=== PATIENT | female | born 1955 | race Caucasian/White ===

== ENCOUNTER 2022-03-26 09:24 | Outpatient (CLI) | payer MEDICARE, SELFPAY ==
--- NOTE | ~2022-03-26 | XR_ITS ---
EXAMINATION: XR lumbar spine 2-3V DATE: 03/26/2022 10:05 INDICATION: Low back pain. TECHNIQUE: 3 views of lumbar spine were obtained. COMPARISON: None. FINDINGS: There is 21 degrees levoscoliosis of lumbar spine. There is 3 mm retrolisthesis of L2 on L3 and L3 on L4. Vertebral body heights are normal. There is severely decreased disc height from L2-L3 through L4-L5 with endplate remodeling. There is multilevel severe facet joint osteoarthritis. Surgic al clips in the right upper quadrant are likely from cholecystectomy. IMPRESSION: 1. Severe lumbar spondylosis. 2. Lumbar levoscoliosis. Reviewed, dictated and finalized at location A.
[2022-03-26 10:10] LABS: Basophils Percent Auto 0.5 % (0.2-1.2); Eosinophils Absolute Auto 0.3 K/mm3 (0-0.3); Eosinophils Percent Auto 3.3 % (0-4.4); Hematocrit 42.6 % (37.0-47.0); Hemoglobin 13.9 g/dL (12.0-15.0); Immature Granulocyte Absolute 0.03 K/mm3 (0.00-0.031); Immature Granulocyte Percent A 0.4 % (0-0.5); Mean Corpuscular HGB Conc 32.6 g/dl (32-36); Mean Corpuscular Hemoglobin 28.4 pg (26-34); Mean Corpuscular Volume 86.9 fl (80-100); Mean Platelet Volume 9.4 fl (7.4-10.4); Monocytes Absolute Auto 0.9 K/mm3 (0.1-0.6); Monocytes Percent Auto 11.6 % (2.6-8.5); Neutrophils Absolute Auto 4.8 K/mm3 (1.3-6.7); Neutrophils Percent Auto 60.2 % (45.5-73.1); Platelet Count Result 323 k/mm3 (150-375); Red Cell Distribution Width 13.2 % (11.5-14.5); White Blood Count 7.9 K/mm3 (4.5-10.0)
[2022-03-26 10:11] LABS: Appearance Urine Clear (Clear); Bilirubin Urine Negative (Negative); Blood Urine Negative (Negative); Color Urine Yellow (Yellow); Glucose Urine UA Negative (Negative); Ketones Urine Negative (Negative); Leukocyte Esterase Ur Negative LEU/UL (Negative); Nitrate Urine Negative (Negative); Protein Urine Negative (Negative); Urobilinogen Urine 0.2 mg/dL (<2.0)
[2022-03-26 10:19] LABS: Add Urine Microscopic? NO
[2022-03-26 10:21] LABS: Alanine Aminotransferase 22 U/L (6-35); Albumin Level 4.8 g/dL (3.5-5.1); Alkaline Phosphatase 93 U/L (38-126); Anion Gap 15 mmol/L (8-16); Aspartate Amino Transferase 28 U/L (14-36); Bilirubin,Total 0.2 mg/dL (0.2-1.3); Blood Urea Nitrogen 15 mg/dL (7-17); Calcium 9.4 mg/dL (8.4-10.2); Carbon Dioxide 31 mmol/L (22-30); Chloride 99 mmol/L (98-107); Estimated Glomerular Filt Rate > 60; Glucose 79 mg/dL (65-110); INR 0.9; Potassium 4.1 mmol/L (3.4-5.0); Prothrombin Time 12.1 Seconds (11.1-14.7); Sodium 145 mmol/L (137-145)
== END 2022-03-26 09:25 | disposition home or self-care (01) ==
LOC: ANHSURGERY 09:30
PROVIDERS: Visit Provider Neurological Surgery
DX: M54.50 Low back pain, unspecified (principal); M47.816 Spondylosis without myelopathy or radiculopathy, lumbar region; Z01.818 Encounter for other preprocedural examination
CPT/HCPCS: 36415; 72100; 80053; 81003; 85025; 85610; 85730; 86850; 86900; 86901

== ENCOUNTER 2022-03-31 14:17 | Inpatient (IN) | payer MEDICARE, SELFPAY ==
[2022-03-23 10:25] VITALS: BMI 29.3
--- NOTE | 2022-03-23 11:06 | PC.NURSE ---
PRE-OP INSTRUCTIONS, PLEASE READ CAREFULLY Report to the Outpatient Waiting Room, entrance under the green pavilion located off [facility], at time _0600_ on date _03/30/22_. OR Time: _0730_. PACK A SMALL OVERNIGHT BAG AND LEAVE IN THE CAR - A mask is required within the hospital. - You and your visitor will be asked to self-screen and do not enter if you have any COVID symptoms. - Only one visitor and NO children visitors are allowed at this time. - The patient visitor is requested to leave or wait in car when not with patient due to restrictions. - VISITING HOURS 10AM-8PM, PARK IN FRONT PARKING LOT AND USE MAIN HOSPITAL ENTRANCE Patients may have clear liquids (water, carbonated beverages, clear teas, apple juice) until 3 hours prior to surgery (0430 AM) with a maximum of 20 ounces. - No food from midnight until time of surgery Take the following medications with a SIP of water the morning of surgery: _TYLENOL IF NEEDED_ Medications to discontinue per DR. WALDEN - _PT STATES STOPPING CELECOXIB 03/19/22 Medications to discontinue per ANESTHESIA - _VITAMINS/SUPPLEMENTS 3 DAYS PRIOR TO SURGERY, Date to take last dose 03/26/22_ Please no make-up, nail gabonese, hairspray, perfume, deodorant, or body powder the day of surgery. No jewelry (including any body piercings) or valuables the day of surgery, leave them at home. Please take a shower or bath the night before, or the morning of, surgery with an antibacterial soap. Wear comfortable, loose fitting clothing. - Jewelry must be removed prior to entering the operating room. Rings and piercings that are not removed may be cut off. - The hospital will not accept responsibility for valuables. - Please leave all valuables, including medications, at home the day of surgery. If you are going home after surgery, a licensed caterpillar driver must drive you home. - NO public transportation without another adult. - We recommend that an adult stay with you for 24 hours following discharge. - We also recommend that you do not drive, make important decision, drink alcoholic beverages, or take any drugs that were not prescribed by your health care provider for at least 24 hours after your discharge time. Follow any additional instructions given to you from your surgeon. If you or anyone in your household have experienced Covid symptoms in the past week, please notify your surgeon or the nurse liaison at the phone number below for possible testing. Telephone instructions given to ____PT and asked if any additional questions and then verbalized understanding. Patient advised to call surgeon office or pre surgery nurse liaison [phone] if any additional questions.
[2022-03-30] VITALS (21 sets, daily range): BP systolic 91–186; BP diastolic 52–84; PULSE 75–105; RESP 12–24; TEMP 36.1–36.6; O2SAT 94–100
[2022-03-30] MEDS: LACTATED RINGERS 1,000 ML 125 ML IV CONT (07:00)
--- NOTE | 2022-03-30 07:14 | WPDANESEPPF ---
Anes - Initial Pre Proc Eval Procedure: Operation Date: 03/30/22 07:30 Proposed Procedures p L2-5 Posterior Lumbar Interbody Fusion with Osteotomies - Burke Rivas MD Date/Time: 03/30/22 07:14 Surgeon: Burke Rivas MD Pre Op Diagnosis: lumbar spondylosis,lumbar scoliosis, Patient Data Age: 66 Gender: F Height: 1.52 m Weight: 68.18 kg Allergies Allergy/AdvReac Type Severity Reaction Status Date / Time No Known Allergies Allergy Unverified 03/23/22 10:16 Home Medications Medication Instructions Recorded Confirmed Type Congaplex 1 tab-cap BID 03/23/22 03/23/22 History [place] Tears 1 drp QID 03/23/22 03/23/22 History Prevagen 1 tab-cap QAM 03/23/22 03/23/22 History acetaminophen 500 mg tablet 1,000 mg PO Q6H PRN Pain 03/23/22 03/23/22 History celecoxib 200 mg capsule 200 mg QAM 03/23/22 03/23/22 History cholecalciferol (vitamin D3) 25 25 mcg PO HS 03/23/22 03/23/22 History mcg (1,000 unit) tablet ferrous sulfate 325 mg (65 mg 325 mg EVERY OTHER DAY 03/23/22 03/23/22 History iron) tablet (FeroSul) gabapentin 300 mg capsule 300 mg PO HS 03/23/22 03/23/22 History melatonin 10 mg tablet 10 mg PO HS 03/23/22 03/23/22 History nortriptyline 10 mg capsule 10 mg HS 03/23/22 03/23/22 History omeprazole 20 mg capsule,delayed 20 mg QAM 03/23/22 03/23/22 History release psyllium husk 0.52 gram capsule 0.52 g PO HS 03/23/22 03/23/22 History tizanidine 4 mg tablet 4 mg HS 03/23/22 03/23/22 History vit C 250 mg-vit E 90 mg-zinc 40 1 tablet PO BID 03/23/22 03/23/22 History mg-copper 1 [id number] capsule (PreserVision AREDS-2) Patient hx anesthesia problems: none Family hx anesthesia problems: none Results Review: All pre-operative results and documents have been reviewed as part of the pre-operative evaluation. [facility] Past Medical History Medical History Chronic pain syndrome Foraminal stenosis of lumbar region GERD (gastroesophageal reflux disease) Lumbar spondylosis Scoliosis of lumbar spine Surgical History Surgical History Hx of cholecystectomy Hx of tonsillectomy Family History Family History Other Dementia Social History Social History Smoking status: Never smoker Second hand tobacco smoke exposure: No Alcohol intake: current Alcohol use details: STATES VERY VERY RARELY Substance use: never Substance use type: does not use Living arrangements: with family Spiritual care concerns: No Anes - Eval Final PreProcedure Day of Procedure 03/30/22 07:14 Patient weight: overweight Heart: regular rate and rhythm Lungs: clear to auscultation Airway: Mallampati scale class III Neurological: alert and oriented Last oral intake: >/= 8 hours ASA classification: III Emergent: no Anesthetic plan: proceed Anesthesia type and monitoring: general ETT and standard monitoring Results Review: All pre-operative results and documents have been reviewed as part of the pre-operative evaluation. Informed Consent: The patient's anesthetic plan and its attendant risks and benefits were discussed with the patient/family/POA. Questions were solicited and answers provided to the satisfaction of the patient/family/POA.
--- NOTE | 2022-03-30 07:50 | PM.IMHP ---
H&P: HPI History of Present Illness Date/Time: 03/30/22 07:50 Chief Complaint: Back and leg pain Narrative: Silvia is a 66-year-old female with back and leg pain related to spondylosis, scoliosis and foraminal and central canal stenosis who presents for L2-5 posterior lumbar interbody fusion. She has not changed since we saw her last. She is not having any bowel or bladder difficulty. She does not have specific muscle group weakness. She has numbness in her right foot. Review of Systems Review of Systems: Patient denies shortness of breath, cough, fever, chills, nausea, vomiting, weight loss, weight gain, dysuria, chest pain. She has back and leg pain and numbness as described elsewhere. She is otherwise negative on 12 systems except as noted elsewhere. [facility] Past Medical History Medical History Chronic pain syndrome Foraminal stenosis of lumbar region GERD (gastroesophageal reflux disease) Lumbar spondylosis Scoliosis of lumbar spine Surgical History Surgical History Hx of cholecystectomy Hx of tonsillectomy Family History Family History Other Dementia Social History Social History Smoking status: Never smoker Second hand tobacco smoke exposure: No Alcohol intake: current Alcohol use details: STATES VERY VERY RARELY Substance use: never Substance use type: does not use Living arrangements: with family Spiritual care concerns: No Meds Home Medications and Allergies Home Medications Medication Instructions Recorded Confirmed Type Congaplex 1 tab-cap BID 03/23/22 03/23/22 History [employer] Tears 1 drp QID 03/23/22 03/23/22 History Prevagen 1 tab-cap QAM 03/23/22 03/23/22 History acetaminophen 500 mg tablet 1,000 mg PO Q6H PRN Pain 03/23/22 03/23/22 History celecoxib 200 mg capsule 200 mg QAM 03/23/22 03/23/22 History cholecalciferol (vitamin D3) 25 25 mcg PO HS 03/23/22 03/23/22 History mcg (1,000 unit) tablet ferrous sulfate 325 mg (65 mg 325 mg EVERY OTHER DAY 03/23/22 03/23/22 History iron) tablet (FeroSul) gabapentin 300 mg capsule 300 mg PO HS 03/23/22 03/23/22 History melatonin 10 mg tablet 10 mg PO HS 03/23/22 03/23/22 History nortriptyline 10 mg capsule 10 mg HS 03/23/22 03/23/22 History omeprazole 20 mg capsule,delayed 20 mg QAM 03/23/22 03/23/22 History release psyllium husk 0.52 gram capsule 0.52 g PO HS 03/23/22 03/23/22 History tizanidine 4 mg tablet 4 mg HS 03/23/22 03/23/22 History vit C 250 mg-vit E 90 mg-zinc 40 1 tablet PO BID 03/23/22 03/23/22 History mg-copper 1 [id number] capsule (PreserVision AREDS-2) Allergies Allergy/AdvReac Type Severity Reaction Status Date / Time No Known Allergies Allergy Unverified 03/23/22 10:16 Exam Neuro: Other: Patient is a normally developed, normal appearing female supine in hospital bed in no acute distress. She is awake, alert, oriented x3, with good fund of knowledge, recall of events and fluent speech. Her face is symmetrical, tongue is midline, her pupils are equal and reactive, her extraocular movements are intact. Strength is 5/5 in all muscle groups of the bilateral lower extremities. Sensation was intact to light touch throughout the lower extremities Assessment and Plan Assessment and plan (1) Lumbar spondylosis: Code(s): M47.816 - Spondylosis without myelopathy or radiculopathy, lumbar region Status: Acute (2) Lumbar stenosis with neurogenic claudication: Code(s): M48.062 - Spinal stenosis, lumbar region with neurogenic claudication Status: Acute (3) Foraminal stenosis of lumbar region: Code(s): M48.061 - Spinal stenosis, lumbar region without neurogenic claudication Status: Acute Plan Silvia is a 66-year-
--- NOTE | 2022-03-30 07:56 | WPDHPUPDATE1 ---
History and Physical Update Update Date/Time: 03/30/22 07:56 History and Physical has been reviewed, including an updated exam of the patient. There are NO changes in the patient's condition. Risks, benefits, and alternatives have been discussed and questions answered. Patient agrees to proceed with procedure.
[2022-03-30] MEDS: ceFAZolin 2 GM/D5W 50 ML 2 GM/50 ML BAG IVPB (08:00)
[2022-03-30] MEDS: LIDO 1%/EPINEPHRINE 1:100,000 50 ML VIAL INFILTRATE (08:47)
[2022-03-30] MEDS: ceFAZolin SODIUM 1 GM VIAL IV PUSH (11:55)
--- NOTE | 2022-03-30 12:40 | W.PM.PROC2 ---
Procedure Note - Detailed Date of Procedure 03/30/22 Pre-op Diagnosis lumbar spondylosis,lumbar scoliosis, Post-op Diagnosis Same Procedure Performed L2-3, L3-4 and L4-5 laminectomy and bilateral facetectomy, L2-3, L3-4 and L4-5 complete diskectomy and interbody arthrodesis utilizing titanium interbody device and local autograft, L2-3, L3-4 and L4-5 pedicle screw instrumentation Surgeon Burke Rivas MD [employer] Dr. Jane Romo Anesthesia General Indications Ms. Posadas is a 66-year-old female with back and leg pain related to scoliosis, foraminal stenosis and central canal stenosis who presents for posterior lumbar interbody fusion at L2-5. Findings Stenosis, spondylosis, foraminal stenosis Description of Procedure Ms. Posadas was brought to the operating room in the supine position, was sedated, intubated and placed under general anesthesia in routine fashion. She was then turned into the prone position on an open Julian table. Area of operation on her back was examined, marked for incision, prepped and draped in routine sterile fashion. Incision was marked over the L2-3 5 spinous processes in the midline. This area was injected with 0.5% lidocaine with [id number] epinephrine. Intravenous antibiotics given prior to incision. Incision was made with a 10 blade scalpel down to the lumbodorsal fascia. A subperiosteal dissection of the muscle and soft tissue away from the spinous process and lamina at L2-5 was performed with a subperiosteal elevator and Bovie cautery. Very frail x-rays obtained to verify the level of operation. The L2 through 5 spinous processes were removed with a Sindy rongeur. Kerrison punches, curved curette and Leksell rongeur were used to remove the lamina in the midline and to the soft contents of the canal were encountered. A Midas Car drill was used to resect the pars bilaterally at L2 through 4. The inferior articular process and facet of L2-3 for good then be removed bilaterally. These +spinous processes were stripped free of soft tissue and morselized for later use as interbody autograft. Kerrison punches and curved curettes were used to define a plane with dura and removed bone and ligament flush with the pedicle and through the foramina widely decompressing the exiting nerve roots. With the thecal sac retracted and protected the disc spaces and bilaterally at each level using an 11 blade scalpel. Scrapers was a very sizes, curettes appears configurations, a pituitary rongeur and a rasp were used to remove as much cartilaginous endplate disc material as possible down to bleeding cortical flat surfaces on the opposing bones. A durotomy occurred on the right at L2-3 during this dissection. It was therefore decided not to place an interbody device from that side as the dura was densely adherent to the annulus. 8 mm interbody devices were chosen for each level after sizing. This was a 26 mm device placed from the left at L2-3 and bilateral at each of the other levels. These were filled with local autograft bone. The disc space was likewise filled with local autograft bone medially and anteriorly. The interbody devices were then placed 2-3 mm countersink within the disc space bilaterally. Pedicle screw instrumentation was performed by observing and palpating the pedicle while a hole was made this particular process above the pedicle using a Midas Car drill. The pedicle was then cannulated with a pedicle probe, checked for continuity with the ball probe, tapped with a 5.5 mm tap and a 6.5 x 50 mm screw was placed into each pedicle on each side. Rods were placed into the screw heads on either side and secured in position using caps for that purpose. Number for x-rays obtained to verify good position of the instrumentation which was confirmed. The caps were then definitively tightened with the torque and anti torque device. Wound was copiously irrigated with bacitracin irrigation all bleeding stopped with bipol
[2022-03-30] MEDS: LACTATED RINGERS 1,000 ML 30 ML IV CONT ×2 (12:45→13:46)
[2022-03-30] MEDS: fentaNYL CITRATE INJ (*CRX) 100 MCG/2 ML VIAL 25 MCG IV PUSH ×6 (13:09→14:01)
[2022-03-30] MEDS: HYDROmorphone HCL INJ (*CRX) 1 MG/ML SYR IV PUSH (14:19)
--- NOTE | 2022-03-30 15:00 | ADMGEN ---
This patient, Silvia Posadas, was admitted to Medical Room 249-01. Patient/family oriented to hospital policies and general routines including ID bracelet, bed and alarms, visiting hours, pain management, procedures, bathroom and other care routines, personal items, smoking policy, room service/diet, and visiting hours. Information on how to activate the Rapid Response Team has been discussed. Patient/Family are encouraged to report perceived risks to care and to ask questions if they do not understand what they are told or what they should do.
[2022-03-30] MEDS: ACETAMINOPHEN 500 MG TABLET 1000 MG PO (15:35)
[2022-03-30] MEDS: OPTI-GEN TAB 1 TABLET PO (16:45)
[2022-03-30] MEDS: ARTIFICIAL TEARS OPHTH SOLN 15 ML BOTTLE 1 DROP EACH EYE (16:49)
--- NOTE | 2022-03-30 19:45 | PC.NURSE ---
Attempted to get pt up to chair at this time, pt became nauseous and near syncopal. BP taken at this time shows significant drop from resting. pt returned to bed.
[2022-03-30] MEDS: HYDROmorphone HCL INJ (*CRX) 1 MG/ML SYR 0.5 MG IV PUSH (19:58)
[2022-03-30] MEDS: CHOLECALCIFEROL 1,000 UNITS TABLET 1000 UNITS PO (21:20)
[2022-03-30] MEDS: MELATONIN 5 MG TABLET 10 MG PO (21:20)
[2022-03-30] MEDS: GABAPENTIN 300 MG CAPSULE PO (21:20)
[2022-03-30] MEDS: NORTRIPTYLINE HCL 10 MG CAPSULE PO (21:20)
[2022-03-30] MEDS: DOCUSATE SODIUM 100 MG CAPSULE PO (21:20)
--- NOTE | 2022-03-30 21:46 | PC.NURSE ---
Dr Rivas notified pt experienced orthostatic hypotension and left leg weakness when attempting to move from bed to chair. May continue to attempt ambulation as tolerated by patient, continue to monitor lower extremity neuro checks as ordered.
[2022-03-31] VITALS (10 sets, daily range): BP systolic 72–186; BP diastolic 38–74; PULSE 81–114; RESP 16–20; TEMP 35.6–37.2; O2SAT 95–100
--- NOTE | ~2022-03-31 | CT_ITS ---
EXAMINATION: CT brain wo con DATE: 03/31/2022 20:03 INDICATION: New confusion TECHNIQUE: Computed tomography (CT) of the head was performed without intravenous contrast. The mA wa s adjusted according to patient size. Iterative reconstruction technique was employed. Exam dose: 75 6.67 mGy-cm total exam DLP. COMPARISON: None FINDINGS: Examination is limited by patient motion. Prominent bilateral carotid siphon internal carotid artery calcifications. There is nonspecific dimin ished attenuation of the cerebral white matter, likely due to chronic small vessel ischemic changes. No intracranial mass lesion or hemorrhage, midline shift or mass effect. Ventricular size is normal. No subdural or epidural hematoma is detected. No fracture or bone destruction of the cranial vault. Mastoid air cells and included paranasal sinuse s appear normally developed and aerated IMPRESSION: Cerebral atherosclerosis and chronic small vessel ischemic changes of the cerebral white matter No acute intracranial finding Reviewed, dictated and finalized at Location A. Reviewed, dictated and finalized at location A.
--- NOTE | ~2022-03-31 | XR_ITS ---
EXAMINATION: XR fluoroscopy no charge DATE: 03/30/2022 12:00 INDICATION: Lumbar fusion with osteotomies TECHNIQUE: 6 fluoroscopic images of the lumbar spine were obtained in lateral projection during proce dure performed by Dr. Rivas. Radiologist was not present for the imaging or procedure. The amount of fluoroscopy time used during this procedure was 0.4 minutes. Total DAP was 0.282 mGym^2 COMPARISON: 03/26/2022 FINDINGS: Images demonstrate anterior and posterior spinal fusion from L2 through L5 with bilateral vertical ro d and pedicle screw fixation as well as interbody fusion device at each level. The sagittal alignment of the lumbar spine appears normal on the lateral projection. There appear to be associated L2-L5 la minectomies on the final images although assessment is limited by fluoroscopic technique and overpene tration of the soft more posterior tissues. A curvilinear wire-like density projects over the posteri or elements. Instantly noted cholecystectomy clips in the upper abdomen. IMPRESSION: 1. Fluoroscopy utilized during the midline instrumented L2-L5 anterior and posterior spinal fusion. S ee procedure note for further detail. Reviewed, dictated and finalized at location A. IMPRESSION: 1. Fluoroscopy utilized during the midline instrumented L2-L5 anterior and post erior spinal fusion. See procedure note for further detail.
[2022-03-31] MEDS: traMADol HCL (*CRX) 50 MG TABLET 100 MG PO ×2 (00:40→08:20)
[2022-03-31 05:12] LABS: Hematocrit 28.6 % (37.0-47.0); Hemoglobin 9.2 g/dL (12.0-15.0); Mean Corpuscular HGB Conc 32.2 g/dl (32-36); Mean Corpuscular Hemoglobin 28.9 pg (26-34); Mean Corpuscular Volume 89.9 fl (80-100); Mean Platelet Volume 9.5 fl (7.4-10.4); Platelet Count Result 274 k/mm3 (150-375); Red Blood Count 3.18 M/mm3 (4.2-5.4); Red Cell Distribution Width 13.6 % (11.5-14.5); White Blood Count 17.5 K/mm3 (4.5-10.0)
[2022-03-31] MEDS: OPTI-GEN TAB 1 TABLET PO ×2 (08:10→16:16)
[2022-03-31] MEDS: DOCUSATE SODIUM 100 MG CAPSULE PO ×2 (08:10→22:20)
[2022-03-31] MEDS: PANTOPRAZOLE 40 MG TABLET PO (08:10)
--- NOTE | 2022-03-31 10:15 | WPDANESPN ---
Anes - Prog Note Post-Op Date/Time: 03/31/22 08:44 Cardiovascular status: normal Respiratory status: normal Airway patency: baseline Mental status: baseline Post-Op hydration status: normal Vital Signs: Last Vital Signs Temp 97.0 F L 03/31/22 08:45 Pulse 91 03/31/22 08:45 Resp 18 03/31/22 08:45 BP 95/38 L 03/31/22 08:45 Pulse Ox 95 03/31/22 08:45 O2 Del Method Nasal Cannula 03/30/22 23:55 O2 Flow Rate 1 03/30/22 23:55 Pain Score (VAS): 6 I/O: Intake & Output 03/30/22 03/31/22 03/31/22 23:59 07:59 15:59 Intake Total 240 240 Output Total 525 Balance -285 240 Laboratory Tests 03/31/22 04:51 03/31/22 04:51 WBC 17.5 H RBC 3.18 L Hgb 9.2 L D Hct 28.6 L MCV 89.9 MCH 28.9 MCHC 32.2 RDW 13.6 Plt Count 274 MPV 9.5 Post-procedural complaints: none Patient Feedback: Patient satisfied with anesthetic care.
[2022-03-31] MEDS: SODIUM CHLORIDE 0.9% IV 500 ML 999 ML IV CONT (11:21)
--- NOTE | 2022-03-31 13:08 | PM.IMCN ---
Assessment and Plan Assessment and plan (1) Orthostatic hypotension: Code(s): I95.1 - Orthostatic hypotension Status: Acute Assessment and Plan: -continue with IV fluids for now. -the patient's H&H has dropped 4 g in the last week. -continue to monitor H&H. -patient may be dehydrated. -may consider midodrine however and has a serious interaction with Pamelor. I will hold off on that for now and see with IV fluids are capable of. -continue with orthostatic blood pressures (2) S/P lumbar fusion: Code(s): Z98.1 - Arthrodesis status Status: Acute Assessment and Plan: -postop care per Neurosurgery -PT OT per Neurosurgery -DVT prophylaxis per Neurosurgery -wound management per Neurosurgery -pain management per Neurosurgery (3) GERD (gastroesophageal reflux disease): Code(s): K21.9 - Gastro-esophageal reflux disease without esophagitis Status: Acute Assessment and Plan: -continue with pantoprazole (4) Iron deficiency anemia: Code(s): D50.9 - Iron deficiency anemia, unspecified Status: Acute Assessment and Plan: -may consider supplementing with iron supplements however with her pain medication and immobility I am afraid that this would call his her a great deal of constipation. -continue to monitor her H&H. Plan I thank Neurosurgery for the opportunity to consult on this pleasant patient HPI Data of Consult Consult date: 03/31/22 Requesting Physician: Burke Rivas MD Primary Care Provider: PHYSICIAN NOT ON STAFF Consult Narrative Narrative: Silvia Posadas is a 66 year old female who has a history of back and leg pain related to spondylosis, scoliosis, and foraminal and central canal stenosis who presented to the hospital on 03/30/2022 for L2-L5 posterior lumbar interbody fusion. Patient is currently complaining of bilateral thigh pain. On 03/30/2022 the patient had L2-3, L3 to L5 laminectomy and bilateral fasetectomy, L2-L3, L3-L4 and L4-L5 complete diskectomy and interbody arthrodesis utilizing titanium interbody device and local autograft, L2-L3, L3-L4 and L4-L5 pedicle screw instrumentation. Estimated blood loss was 900 cc. Her H&H was 13.9 and 42.6 on 03/26/2022. It is now 9.2 in 28.6. Patient's blood pressure sitting was 143/64 and stable 72/47. The patient feels dizzy when she stands up. She was given a L of fluid. The hospitalist group was asked to consult on the patient on 03/31/2022. Review of Systems Review of Systems: See HPI All systems reviewed & are unremarkable except as noted in HPI and below Constitutional: Constitutional: Reports as per HPI and Reports no additional constitutional complaints Eyes: Eyes: Reports as per HPI and Reports no additional eye complaints ENT: Reports system reviewed and no additional complaints, except as documented and Reports Normal hearing present Cardiovascular: Cardiovascular: Reports no additional cardiovascular complaints Respiratory: Respiratory: Reports no additional respiratory complaints and Reports no additional respiratory complaints Gastrointestinal: Gastrointestinal: Reports as per HPI and Reports no additional gastrointestinal complaints Musculoskeletal: Musculoskeletal: Reports no additional musculoskeletal complaints Integumentary/Breasts: Skin/Breast: Reports system reviewed and no additional complaints, except as docu and Reports as per HPI Neurologic: Reports system reviewed and no additional complaints, except as documented, Reports as per HPI and Reports Normal hearing present Psychiatric: Psychiatric: Reports no additional psychiatric complaints and Reports as per HPI Endocrine: Endocrine: Reports no additional endocrine complaints Hematologic/Lymphatic: Hematologic/Lymphatic: Reports no additional hematologic/lymphatic complaints Allergic/Immunologic: Allergic/Immunologic: Reports no additional allergic/immunologic complaints PMFSH Past Medical Histor
[2022-03-31] MEDS: SODIUM CHLORIDE 0.9% IV 1,000 ML 100 ML IV CONT (13:43)
--- NOTE | 2022-03-31 13:56 | PC.NURSE ---
On 03/31/22, the student, [Karen Hunt], provided care and completed [facility] documentation on this patient. I have reviewed the student's documentation and agree with the findings.
[2022-03-31 14:18] LABS: Hematocrit 27.8 % (37.0-47.0); Hemoglobin 8.8 g/dL (12.0-15.0)
[2022-03-31] MEDS: CYCLOBENZAPRINE HCL 5 MG TABLET PO (15:07)
[2022-03-31 19:43] LABS: Hemoglobin 8.3 g/dL (12.0-15.0)
[2022-03-31 19:55] LABS: Alanine Aminotransferase 32 U/L (6-35); Albumin Level 3.3 g/dL (3.5-5.1); Alkaline Phosphatase 71 U/L (38-126); Anion Gap 13 mmol/L (8-16); Aspartate Amino Transferase 38 U/L (14-36); Bilirubin,Total 0.2 mg/dL (0.2-1.3); Blood Urea Nitrogen 12 mg/dL (7-17); Calcium 7.6 mg/dL (8.4-10.2); Carbon Dioxide 24 mmol/L (22-30); Chloride 100 mmol/L (98-107); Estimated CRCL calculation 51 ml/min; Estimated Glomerular Filt Rate > 60; Glucose 172 mg/dL (65-110); Potassium 3.8 mmol/L (3.4-5.0); Sodium 137 mmol/L (137-145)
[2022-03-31] MEDS: CHOLECALCIFEROL 1,000 UNITS TABLET 1000 UNITS PO (20:34)
[2022-03-31] MEDS: NORTRIPTYLINE HCL 10 MG CAPSULE PO (20:34)
[2022-03-31] MEDS: PSYLLIUM POWDER PACKET 1 PACKET PO (20:34)
[2022-03-31] MEDS: GABAPENTIN 300 MG CAPSULE PO (20:35)
[2022-03-31] MEDS: SENNA/DOCUSATE SODIUM TABLET 1 TAB PO (20:35)
[2022-03-31] MEDS: MELATONIN 5 MG TABLET 10 MG PO (20:35)
[2022-04-01] VITALS (7 sets, daily range): BP systolic 127–167; BP diastolic 50–74; PULSE 90–110; RESP 18–20; TEMP 36.9–37.4; O2SAT 92–100
[2022-04-01 02:21] LABS: Hematocrit 25.1 % (37.0-47.0); Hemoglobin 8.2 g/dL (12.0-15.0)
[2022-04-01] MEDS: SODIUM CHLORIDE 0.9% IV 1,000 ML 100 ML IV CONT ×2 (04:01→14:32)
[2022-04-01] MEDS: ACETAMINOPHEN 500 MG TABLET 1000 MG PO (04:05)
[2022-04-01 07:42] LABS: Hematocrit 25.2 % (37.0-47.0); Hemoglobin 8.2 g/dL (12.0-15.0)
[2022-04-01 08:38] LABS: Basophils Percent Auto 0.2 % (0.2-1.2); Eosinophils Percent Auto 0.2 % (0-4.4); Hematocrit 25.8 % (37.0-47.0); Hemoglobin 8.2 g/dL (12.0-15.0); Immature Granulocyte Absolute 0.06 K/mm3 (0.00-0.031); Immature Granulocyte Percent A 0.4 % (0-0.5); Lymphocytes Absolute Auto 2.46 K/mm3 (0.9-3.2); Mean Corpuscular HGB Conc 31.8 g/dl (32-36); Mean Corpuscular Hemoglobin 28.5 pg (26-34); Mean Corpuscular Volume 89.6 fl (80-100); Monocytes Percent Auto 13.9 % (2.6-8.5); Neutrophils Absolute Auto 9.9 K/mm3 (1.3-6.7); Neutrophils Percent Auto 68.3 % (45.5-73.1); Platelet Count Result 236 k/mm3 (150-375); Red Blood Count 2.88 M/mm3 (4.2-5.4); Red Cell Distribution Width 13.7 % (11.5-14.5); White Blood Count 14.5 K/mm3 (4.5-10.0)
--- NOTE | 2022-04-01 09:48 | WPDNEUROSGPN ---
Progress Note: A&P Assessment and Plan (1) Foraminal stenosis of lumbar region: Code(s): M48.061 - Spinal stenosis, lumbar region without neurogenic claudication Status: Acute (2) Lumbar stenosis with neurogenic claudication: Code(s): M48.062 - Spinal stenosis, lumbar region with neurogenic claudication Status: Acute (3) Lumbar spondylosis: Code(s): M47.816 - Spondylosis without myelopathy or radiculopathy, lumbar region Status: Acute Plan We will wait to remove the drain to see whether it slows down today. There was no drainage in it since emptying this morning. Her Hardwick catheter could also be removed if she 60s with physical therapy to be able to get to at least a bedside commode. Neurologically she seems intact despite her feeling of weakness in her legs which may be orthostatic hypotension. Appreciate input from hospitalists. Subjective Date/time seen: 04/01/22 09:48 Ms. Posadas is postop day 2 status post L2-3, L3-4 and L4-5 posterior lumbar interbody fusion. She has had orthostatic hypotension limiting her ability to stand and ambulate. She has also stated that she felt like her right leg was giving out from under her. Confrontational testing yesterday and today has not revealed any defect of strength. She is not having any new bowel or bladder difficulties but still has a Hardwick catheter in place. She still has a drain in place which put out a fair amount overnight. Exam Neuro: Other: To direct confrontation in the sitting position strength appears to be symmetrical in the bilateral lower extremities. She is lifting both hips at the hips and is able to hold her leg straight at the knees. Sensation is intact to light touch throughout the lower extremities. Her dressing is clean dry and intact. Objective Data Vital Signs Vital Signs: Vital Signs - 24 hr 03/31/22 10:10 03/31/22 12:10 03/31/22 12:13 Temperature Pulse Rate Respiratory Rate Blood Pressure 165/56 H 143/64 H Pulse Oximetry Oxygen Delivery Room Air 03/31/22 12:18 03/31/22 17:50 03/31/22 19:28 Temperature 96.3 F L 98.9 F Pulse Rate 111 H 114 H Respiratory Rate 16 20 Blood Pressure 72/47 L 166/74 H 186/68 H Pulse Oximetry 99 96 Oxygen Delivery 03/31/22 20:00 04/01/22 00:33 04/01/22 05:08 Temperature 98.5 F 99.2 F Pulse Rate 114 H 108 H 104 H Respiratory Rate 20 20 20 Blood Pressure 167/60 H 153/68 H Pulse Oximetry 96 96 92 Oxygen Delivery Room Air 04/01/22 08:20 Temperature Pulse Rate Respiratory Rate Blood Pressure Pulse Oximetry Oxygen Delivery Room Air Intake/Output Intake/Output: Intake & Output 03/29/22 03/30/22 03/31/22 04/01/22 23:59 23:59 23:59 23:59 Intake Total 3700 2960 200 Output Total 450 7305 2235 Balance 3256 519 -7695 Meds/Results Medications: Active Medications Generic Name Dose Route Start Last Admin Trade Name Freq PRN Reason Stop Dose Admin Acetaminophen 1,000 mg 03/30/22 14:58 04/01/22 04:05 Acetaminophen 500 Mg Tablet PO 1,000 mg Q6H PRN Administration Pain Al Hydrox/Mg Hydrox/Simethicone 20 ml 03/30/22 14:58 Mag Hydrox/Al Hydrox/Simeth 30 Ml Udc PO Q4H PRN Indigestion/Heartburn Artificial Tears 1 drop 03/30/22 14:58 03/30/22 16:49 Artificial Tears Ophth Soln 15 Ml Bottle EACH EYE 04/29/22 14:57 1 drop QID PRN Administration Dry Eye(s) Bisacodyl 10 mg 03/30/22 14:58 Bisacodyl 10 Mg Suppository RECTAL DAILY PRN Constipation Cyclobenzaprine HCl 5 mg 03/31/22 14:52 03/31/22 15:07 Cyclobenzaprine Hcl 5 Mg Tablet PO 5 mg Q8H PRN Administration Muscle Spasm Docusate Sodium 100 mg 03/30/22 21:00 03/31/22 20:35 Docusate Sodium 100 Mg Capsule PO 100 mg Q12HR UDAY Administration Ferrous Sulfate 324 mg 04/01/22 09:00 Ferrous Sulfate 324 Mg Tablet PO Q48HR UDAY Gabapentin 300 mg 03/30/22 21:00
[2022-04-01] MEDS: OPTI-GEN TAB 1 TABLET PO ×2 (09:52→17:13)
[2022-04-01] MEDS: FERROUS SULFATE 324 MG TABLET PO (09:52)
[2022-04-01] MEDS: PANTOPRAZOLE 40 MG TABLET PO (09:52)
[2022-04-01] MEDS: HYDROmorphone HCL INJ (*CRX) 1 MG/ML SYR 0.5 MG IV PUSH ×2 (10:54→22:10)
--- NOTE | 2022-04-01 14:09 | PM.IMPN ---
Progress Note: A&P Assessment and Plan (1) S/P lumbar fusion: Code(s): Z98.1 - Arthrodesis status Status: Acute Assessment and Plan: patient with history of lumbar spondylosis and scoliosis underwent L2-L3, L3-L4 and L4-5 laminectomy and bilateral facetectomy with complete diskectomy and arthrodesis on 04/19/2022 patient tolerated the procedure well management per Neurosurgery continue PT/OT (2) Orthostatic hypotension: Code(s): I95.1 - Orthostatic hypotension Status: Acute Assessment and Plan: noted to be orthostatic yesterday afternoon with 71 point drop in systolic BP from sitting to standing position. She has been rehydrated with IV fluids. continue gentle IV fluids and encourage adequate p.o. intake initiate Yevgeniy hose monitor orthostatic vital signs Q shift orthostatics have not been repeated today, therefore unable to assess response to IV fluids. Awaiting completion, then will determine need to continue (3) Iron deficiency anemia: Code(s): D50.9 - Iron deficiency anemia, unspecified Status: Acute Assessment and Plan: 4 point drop in hemoglobin postoperatively H&H remaining stable no evidence of active bleeding continue p.o. ferrous sulfate, increased to daily dosing ( previously was every other day) trend H&H (4) GERD (gastroesophageal reflux disease): Code(s): K21.9 - Gastro-esophageal reflux disease without esophagitis Status: Acute Assessment and Plan: no acute issues at this time continue Protonix Subjective Date/time seen: 04/01/22 14:09 Interval history: date of service: 04/01/2022 Silvia Posadas is a 66-year-old female with a history of lumbar foraminal stenosis, lumbar spondylosis, lumbar scoliosis s/p laminectomy, iron deficiency anemia, and GERD who is seen in consultation for medical management following her laminectomy on 03/30. she is feeling okay today. She denies any back pain at this time. She does complain of pain in her bilateral anterior thighs. she has a difficult time describing this pain, but states that it feels worse than a jayy horse. describes it as a squeezing or pressure like sensation. Denies numbness or tingling of her extremities. Today she was able to get up into a chair with therapy. she set up for a while until she began having some pain and got back in bed. No issues with her Hardwick catheter. Reports last bowel movement was 3 days ago. Denies dizziness, lightheadedness, fever, chills, nausea, or vomiting. She is tolerating her diet without difficulty. Review of Systems Review of Systems: All systems reviewed & are unremarkable except as noted in HPI and below Exam Narrative: General: Well-nourished, well-appearing 66-year-old female, supine in bed, comfortable, NARD Neuro: awake, alert and oriented x4, speech clear, no focal neuro deficits noted HEENMT: normocephalic, atraumatic, EOMI, sclerae anicteric Respiratory: clear to auscultation bilaterally, nonlabored breathing Cardio: regular rate, regular rhythm with S1-S2 Abdomen: nondistended, normoactive bowel sounds, soft, nontender to palpation : Hardwick catheter patent and draining clear urine Extremities: no edema, erythema, or tenderness to palpation, DP pulses 2+ bilaterally, able to wiggle toes bilaterally Skin: no rashes or lesions, warm and dry Psych: appropriate mood and affect, judgment and insight intact Objective Data Vital Signs Vital Signs: Vital Signs - 24 hr 03/31/22 17:50 03/31/22 19:28 03/31/22 20:00 Temperature 96.3 F L 98.9 F Pulse Rate 111 H 114 H 114 H Respiratory Rate 16 20 20 Blood Pressure 166/74 H 186/68 H Pulse Oximetry 99 96 96 Oxygen Delivery Room Air 04/01/22 00:33 04/01/22 05:08 04/01/22 08:20 Temperature 98.5 F 99.2 F Pulse Rate 108 H 104 H Respiratory Rate 20 20 Blood Pressure 167/60 H 153/68 H Pulse Oximetry 96 92 Oxygen Delivery
[2022-04-01] MEDS: TIZANIDINE HCL 2 MG TABLET PO ×2 (14:28→18:55)
[2022-04-01] MEDS: traMADol HCL (*CRX) 50 MG TABLET 100 MG PO (20:33)
[2022-04-01] MEDS: GABAPENTIN 300 MG CAPSULE PO (22:16)
[2022-04-01] MEDS: DOCUSATE SODIUM 100 MG CAPSULE PO (22:16)
[2022-04-01] MEDS: NORTRIPTYLINE HCL 10 MG CAPSULE PO (22:16)
[2022-04-01] MEDS: CHOLECALCIFEROL 1,000 UNITS TABLET 1000 UNITS PO (22:16)
[2022-04-01] MEDS: MELATONIN 5 MG TABLET 10 MG PO (22:21)
[2022-04-02] VITALS (12 sets, daily range): BP systolic 84–167; BP diastolic 45–122; PULSE 76–90; RESP 14–20; TEMP 36.2–37.1; O2SAT 90–99
[2022-04-02] MEDS: SODIUM CHLORIDE 0.9% IV 1,000 ML 100 ML IV CONT ×2 (00:32→11:22)
[2022-04-02] MEDS: HYDROmorphone HCL INJ (*CRX) 1 MG/ML SYR 0.5 MG IV PUSH ×2 (01:15→12:28)
[2022-04-02 05:09] LABS: Hematocrit 23.9 % (37.0-47.0); Hemoglobin 7.8 g/dL (12.0-15.0); Mean Corpuscular HGB Conc 32.6 g/dl (32-36); Mean Corpuscular Hemoglobin 28.6 pg (26-34); Mean Corpuscular Volume 87.5 fl (80-100); Mean Platelet Volume 9.5 fl (7.4-10.4); Platelet Count Result 227 k/mm3 (150-375); Red Blood Count 2.73 M/mm3 (4.2-5.4); Red Cell Distribution Width 13.5 % (11.5-14.5); White Blood Count 13.1 K/mm3 (4.5-10.0)
[2022-04-02] MEDS: traMADol HCL (*CRX) 50 MG TABLET 100 MG PO ×2 (05:12→15:04)
[2022-04-02 05:17] LABS: Anion Gap 9 mmol/L (8-16); Blood Urea Nitrogen 7 mg/dL (7-17); Calcium 7.7 mg/dL (8.4-10.2); Carbon Dioxide 27 mmol/L (22-30); Chloride 101 mmol/L (98-107); Estimated CRCL calculation 96 ml/min; Estimated Glomerular Filt Rate > 60; Glucose 93 mg/dL (65-110); Potassium 3.2 mmol/L (3.4-5.0); Sodium 137 mmol/L (137-145)
[2022-04-02] MEDS: FERROUS SULFATE 324 MG TABLET PO (09:00)
[2022-04-02] MEDS: TIZANIDINE HCL 2 MG TABLET PO ×2 (09:00→17:17)
[2022-04-02] MEDS: OPTI-GEN TAB 1 TABLET PO ×2 (09:00→17:17)
[2022-04-02] MEDS: PANTOPRAZOLE 40 MG TABLET PO (09:00)
[2022-04-02] MEDS: POTASSIUM CHLORIDE 20 MEQ TABLET 40 MEQ PO (09:07)
[2022-04-02] MEDS: DOCUSATE SODIUM 100 MG CAPSULE PO ×2 (09:07→20:49)
[2022-04-02 09:11] LABS: Magnesium 2.2 mg/dL (1.6-2.3)
--- NOTE | 2022-04-02 09:32 | PM.IMPN ---
Progress Note: A&P Assessment and Plan (1) Orthostatic hypotension: Code(s): I95.1 - Orthostatic hypotension Status: Acute Assessment and Plan: BP 142/63 supine to SBP 84 sitting, +dizziness. Likely secondary to postop anemia. Continue IV fluids. Will transfuse 1 unit PRBC given symptomatic anemia Fall precautions Continue orthostatic vitals Qshift. (2) S/P lumbar fusion: Code(s): Z98.1 - Arthrodesis status Status: Acute Assessment and Plan: 03/30/22 POD3 status post L2-3, L3-4 and L4-5 posterior lumbar interbody fusion. Management per neurosurgery (3) Postoperative anemia due to acute blood loss: Code(s): D62 - Acute posthemorrhagic anemia Status: Acute Assessment and Plan: H/O chronic iron deficiency anemia, Hgb was 13.9 on admission. EBL 900 mL intraop, hemovac -330 mL since surgery 04/02/22 Hgb 7.8, Hct 23.9. Type & cross, transfuse 1 unit PRBC for symptomatic anemia Repeat H/H 2 hours after transfusion Continue iron supplement. Murmur noted on exam- ?secondary to anemia. Will transfuse and reassess tomorrow. Consider Echocardiogram if persists. c/o palpitations- monitor telemetry and check baseline EKG. (4) GERD (gastroesophageal reflux disease): Code(s): K21.9 - Gastro-esophageal reflux disease without esophagitis Status: Chronic Assessment and Plan: Chronic, stable. Continue PPI therapy. Plan CODE STATUS: FULL CODE Time Spent With Patient Time with patient: 25 - 35 minutes Subjective Date/time seen: 04/02/22 09:32 Patient is a 66-year-old female with a history of lumbar foraminal stenosis, lumbar spondylosis, lumbar scoliosis s/p laminectomy on 03/30/22. The hospitalist team was consulted for management of postop dizziness and orthostatic hypotension. She feels tired today. She had severe pain this morning that improved with oral pain medications, however, she does not want to take strong pain medications because she is concerned for dependence. She still has dizziness with sitting. Orthostatic vitals dropped significant from 142/63 supine to SBP 84. Hgb 7.8 today. Additionally, she felt a fluttering in her chest this morning at rest. Review of Systems Review of Systems: All systems reviewed & are unremarkable except as noted in HPI and below Exam Narrative: General: No acute respiratory distress. Tired appearing lying in bed. Neuro: awake, alert and oriented x4, speech clear, no focal neuro deficits noted HEENT: normocephalic, atraumatic, PERRL, EOM intact, sclerae anicteric, mucous membranes pale and moist. Respiratory: clear to auscultation bilaterally, nonlabored breathing Cardio: regular rate, regular rhythm with S1-S2. Systolic murmur 1/6 apex. No gallops or rubs. Abdomen: nondistended, normoactive bowel sounds, soft, nontender to palpation : Hardwick catheter patent and draining clear urine Back: lower back incision dressing clean, dry and intact. Surrounding skin without edema, erythema or ecchymosis. Hemavac with serosanguinous drainage. Extremities: no edema, erythema, or tenderness to palpation, DP pulses 2+ bilaterally, sensation and movement intact BLE. Generalized weakness. Skin: Pallor. no rashes or lesions, warm and dry Psych: Neutral mood and affect, cooperative. Objective Data Vital Signs Vital Signs: Vital Signs - 24 hr 04/01/22 10:53 04/01/22 15:15 04/01/22 20:00 Temperature 98.5 F 99.4 F 99.3 F Pulse Rate 100 90 96 Respiratory Rate 20 18 18 Blood Pressure 148/56 H 129/50 L 127/58 L Pulse Oximetry 97 97 98 04/01/22 20:19 04/01/22 20:18 04/01/22 20:18 Temperature 99.3 F 99.3 F 99.3 F Pulse Rate 96 108 H 110 H Respiratory Rate 18 18 18 Blood Pressure 127/58 L 148/74 H 155/68 H Pulse Oximetry 98 100 95 04/02/22 04:58 Temperature 97.1 F L Pulse Rate 87 Respiratory Rate 18 Blood Pressure 164/64 H Pulse Oximetry 94 Intake/Output Intake/Output: I
--- NOTE | 2022-04-02 11:51 | ECG_ITS ---
Measurements Intervals [place] Rate: 79 P: 44 SD: 143 QRS: -4 QRSD: 88 T: 7 QT: 372 QTc: 428 Interpretive Statements SINUS RHYTHM LEFT VENTRICULAR HYPERTROPHY BORDERLINE T WAVE ABNORMALITY- INFERIOR LEADS BASELINE WANDER- V4-V6 BORDERLINE ECG NO PREVIOUS ECG AVAILABLE FOR COMPARISON Electronically Signed On 04-02-2022 12:59:18 CDT by Trell Quintero D.O.
[2022-04-02 14:10] LABS: Hematocrit 24.3 % (37.0-47.0); Hemoglobin 7.7 g/dL (12.0-15.0)
[2022-04-02] MEDS: SODIUM CHLORIDE 0.9% IV 250 ML 30 ML (15:59)
[2022-04-02] MEDS: ACETAMINOPHEN 500 MG TABLET 1000 MG PO (20:48)
[2022-04-02] MEDS: CHOLECALCIFEROL 1,000 UNITS TABLET 1000 UNITS PO (20:49)
[2022-04-02] MEDS: MELATONIN 5 MG TABLET 10 MG PO (20:49)
[2022-04-02] MEDS: GABAPENTIN 300 MG CAPSULE PO (20:49)
[2022-04-02] MEDS: NORTRIPTYLINE HCL 10 MG CAPSULE PO (20:50)
[2022-04-02 22:52] LABS: Hematocrit 29.9 % (37.0-47.0); Hemoglobin 9.8 g/dL (12.0-15.0)
[2022-04-03] VITALS (13 sets, daily range): BP systolic 108–188; BP diastolic 46–91; PULSE 60–97; RESP 16–22; TEMP 36.1–36.7; O2SAT 97–100
[2022-04-03] MEDS: HYDROmorphone HCL INJ (*CRX) 1 MG/ML SYR 0.5 MG IV PUSH (00:10)
[2022-04-03] MEDS: SODIUM CHLORIDE 0.9% IV 1,000 ML 100 ML IV CONT (03:16)
[2022-04-03 05:50] LABS: Hemoglobin 10.2 g/dL (12.0-15.0); Mean Corpuscular HGB Conc 32.9 g/dl (32-36); Mean Corpuscular Hemoglobin 28.7 pg (26-34); Mean Corpuscular Volume 87.3 fl (80-100); Mean Platelet Volume 9.8 fl (7.4-10.4); Platelet Count Result 292 k/mm3 (150-375); Red Blood Count 3.55 M/mm3 (4.2-5.4); Red Cell Distribution Width 13.6 % (11.5-14.5); White Blood Count 12.6 K/mm3 (4.5-10.0)
[2022-04-03 05:59] LABS: Anion Gap 10 mmol/L (8-16); Blood Urea Nitrogen 9 mg/dL (7-17); Calcium 8.4 mg/dL (8.4-10.2); Carbon Dioxide 25 mmol/L (22-30); Chloride 101 mmol/L (98-107); Estimated CRCL calculation 96 ml/min; Estimated Glomerular Filt Rate > 60; Glucose 139 mg/dL (65-110); Potassium 3.8 mmol/L (3.4-5.0); Sodium 136 mmol/L (137-145)
--- NOTE | 2022-04-03 07:26 | PM.IMPN ---
Progress Note: A&P Assessment and Plan (1) Orthostatic hypotension: Code(s): I95.1 - Orthostatic hypotension Status: Acute Assessment and Plan: c/o postop +dizziness. +orthostatics following surgery. Secondary to anemia. 04/02/22 transfused 1 unit PRBC given symptomatic anemia 04/03/22 Hgb 10.2. Saline lock IVF. Orthostatic vitals negative today. Fall precautions (2) S/P lumbar fusion: Code(s): Z98.1 - Arthrodesis status Status: Acute Assessment and Plan: 03/30/22 POD4 status post L2-3, L3-4 and L4-5 posterior lumbar interbody fusion. Management per neurosurgery (3) Postoperative anemia due to acute blood loss: Code(s): D62 - Acute posthemorrhagic anemia Status: Acute Assessment and Plan: H/O chronic iron deficiency anemia, Hgb was 13.9 on admission. EBL 900 mL intraop, hemovac -330 mL since surgery 04/02/22 Hgb 7.8, Hct 23.9. transfused 1 unit PRBC for symptomatic anemia Continue iron supplement. 04/03/22 H/H 10.2/31. Improving symptoms. Hemovac discontinued. (4) GERD (gastroesophageal reflux disease): Code(s): K21.9 - Gastro-esophageal reflux disease without esophagitis Status: Chronic Assessment and Plan: Chronic, stable. Continue PPI therapy. Plan CODE STATUS: FULL CODE Time Spent With Patient Time with patient: 15 - 25 minutes Subjective Date/time seen: 04/03/22 07:26 Interval history: Patient is a 66-year-old female with a lumbar foraminal stenosis, lumbar spondylosis, lumbar scoliosis s/p laminectomy, iron deficiency anemia, and GERD. S/p POD4 L2-3, L3-4, L4-5 laminectomy. We were seen in consultation for medical management of acute on chronic anemia and orthostatic hypotension. She reports feeling better overall today. Her dizziness is improved. Orthostatic vitals were negative this morning. Her hemovac was pulled yesterday. Her pain is tolerable with acetaminophen. Review of Systems Review of Systems: All systems reviewed & are unremarkable except as noted in HPI and below Exam Narrative: General: No acute respiratory distress. Non-toxic appearing Neuro: awake, alert and oriented x4, speech clear, no focal neuro deficits noted HEENT: normocephalic, pupils equal and round, sclerae anicteric, mucous membranes moist. Respiratory: clear to auscultation bilaterally, RR regular and unlabored. Cardio: regular rate, regular rhythm with S1-S2. No murmurs, gallops or rubs. Abdomen: nondistended, normoactive bowel sounds, soft, nontender to palpation : Hardwick catheter patent and draining clear urine Back: lower back surgical aquacel dressing clean, dry and intact. Surrounding skin without edema, erythema or ecchymosis. Extremities: no edema, erythema, or tenderness to palpation, DP pulses 2+ bilaterally, BLE with intact sensation and strength 4/5. Generalized weakness. Skin: Fair. no rashes or lesions, warm and dry Psych: Neutral mood and affect, cooperative. Objective Data Vital Signs Vital Signs: Vital Signs - 24 hr 04/02/22 09:00 04/02/22 09:00 04/02/22 10:00 Temperature 98.1 F Pulse Rate 76 Respiratory Rate 14 Blood Pressure 142/63 H 84/84 L 102/58 L Pulse Oximetry 90 Oxygen Delivery 04/02/22 08:00 04/02/22 13:30 04/02/22 15:53 Temperature 97.9 F 98.3 F Pulse Rate 89 88 Respiratory Rate 18 18 Blood Pressure 134/55 L 167/45 H Pulse Oximetry 99 99 Oxygen Delivery Room Air 04/02/22 16:36 04/02/22 18:30 04/02/22 20:00 Temperature 98.7 F 98.3 F Pulse Rate 86 80 Respiratory Rate 17 20 Blood Pressure 165/61 H 150/60 H Pulse Oximetry 97 99 97 Oxygen Delivery Room Air 04/02/22 20:39 04/02/22 20:37 04/02/22 20:38 Temperature 98.3 F 98.3 F 98.3 F Pulse Rate 80 90 90 Respiratory Rate 20 20 20 Blood Pressure 150/60 H 142/122 H 145/80 H Pulse Oximetry 97 94 98 Oxygen Delivery 04/02/22 20:50 04/02/22 20:50 04/02/22 20:00 Temperature 98.3 F
[2022-04-03] MEDS: polyethylene glycoL 3350 17 GM POWD.PACK PO (08:37)
[2022-04-03] MEDS: PANTOPRAZOLE 40 MG TABLET PO (08:37)
[2022-04-03] MEDS: FERROUS SULFATE 324 MG TABLET PO (08:37)
[2022-04-03] MEDS: TIZANIDINE HCL 2 MG TABLET PO ×3 (08:37→16:57)
[2022-04-03] MEDS: OPTI-GEN TAB 1 TABLET PO ×2 (08:37→16:57)
[2022-04-03] MEDS: DOCUSATE SODIUM 100 MG CAPSULE PO ×2 (08:45→21:50)
[2022-04-03] MEDS: ACETAMINOPHEN 500 MG TABLET 1000 MG PO ×3 (09:03→21:50)
--- NOTE | 2022-04-03 13:00 | WPDNEUROSGPN ---
Progress Note: A&P Assessment and Plan (1) S/P lumbar fusion: Code(s): Z98.1 - Arthrodesis status Status: Acute (2) Foraminal stenosis of lumbar region: Code(s): M48.061 - Spinal stenosis, lumbar region without neurogenic claudication Status: Acute (3) Lumbar stenosis with neurogenic claudication: Code(s): M48.062 - Spinal stenosis, lumbar region with neurogenic claudication Status: Acute (4) Lumbar spondylosis: Code(s): M47.816 - Spondylosis without myelopathy or radiculopathy, lumbar region Status: Acute (5) Postoperative anemia due to acute blood loss: Code(s): D62 - Acute posthemorrhagic anemia Status: Acute Plan Silvia is doing better today. I appreciate the help the hospitalists with her blood-loss anemia. She has less orthostasis and better strength in her legs. she will continue to work with occupational and physical therapy. If she is making independent transfers and ambulating independently by tomorrow or Tuesday then we will discharge her home, perhaps with home physical therapy. Subjective Date/time seen: 04/03/22 13:00 Silvia is postop day 4 status post L2-5 posterior lumbar interbody fusion. She is doing better today. Yesterday her drain was removed and I gave her 10 mg of Decadron for inflammation. The discomfort in her legs is improved her strength is improved. She is starting to make transfers independently but still requires some help. She has no new complaints today. Exam Neuro: Other: She is antigravity with both legs at the hip in the lying position. Her strength appears normal and symmetric in the quadriceps and the [place] and plantar flexors bilaterally. Sensation is intact to light touch throughout the lower extremities. Her wound is clean, dry and intact. Objective Data Vital Signs Vital Signs: Vital Signs - 24 hr 04/02/22 13:30 04/02/22 15:53 04/02/22 16:36 Temperature 97.9 F 98.3 F Pulse Rate 89 88 Respiratory Rate 18 18 Blood Pressure 134/55 L 167/45 H Pulse Oximetry 99 99 97 Oxygen Delivery Room Air 04/02/22 18:30 04/02/22 20:00 04/02/22 20:39 Temperature 98.7 F 98.3 F 98.3 F Pulse Rate 86 80 80 Respiratory Rate 17 20 20 Blood Pressure 165/61 H 150/60 H 150/60 H Pulse Oximetry 99 97 97 Oxygen Delivery 04/02/22 20:37 04/02/22 20:38 04/02/22 20:50 Temperature 98.3 F 98.3 F 98.3 F Pulse Rate 90 90 80 Respiratory Rate 20 20 20 Blood Pressure 142/122 H 145/80 H 150/60 H Pulse Oximetry 94 98 97 Oxygen Delivery 04/02/22 20:50 04/02/22 20:00 04/03/22 00:00 Temperature Pulse Rate 77 97 Respiratory Rate Blood Pressure Pulse Oximetry Oxygen Delivery Room Air 04/03/22 04:00 04/03/22 04:45 04/03/22 06:11 Temperature 96.9 F L Pulse Rate 83 89 Respiratory Rate 18 Blood Pressure 188/67 H 146/62 H Pulse Oximetry 97 Oxygen Delivery 04/03/22 09:00 04/03/22 09:05 04/03/22 09:10 Temperature Pulse Rate Respiratory Rate Blood Pressure 172/74 H 162/91 H 162/76 H Pulse Oximetry Oxygen Delivery Intake/Output Intake/Output: Intake & Output 03/31/22 04/01/22 04/02/22 04/03/22 23:59 23:59 23:59 23:59 Intake Total 2960 2470 4970 530 Output Total 2475 2505 3120 1200 Balance 485 -4407 1850 -547 Meds/Results Medications: Active Medications Generic Name Dose Route Start Last Admin Trade Name Freq PRN Reason Stop Dose Admin Acetaminophen 1,000 mg 03/30/22 14:58 04/03/22 09:03 Acetaminophen 500 Mg Tablet PO 1,000 mg Q6H PRN Administration Pain Al Hydrox/Mg Hydrox/Simethicone 20 ml 03/30/22 14:58 Mag Hydrox/Al Hydrox/Simeth 30 Ml Udc PO Q4H PRN Indigestion/Heartburn Artificial Tears 1 drop 03/30/22 14:58 03/30/22 16:49 Artificial Tears Ophth Soln 15 Ml Bottle EACH EYE 04/29/22 14:57 1 drop QID PRN Administration Dry Eye(s) Bisacodyl 10 mg 03/30/22 14:58 Bisacodyl 10 M
[2022-04-03] MEDS: traMADol HCL (*CRX) 50 MG TABLET 100 MG PO ×2 (16:56→21:52)
[2022-04-03] MEDS: CHOLECALCIFEROL 1,000 UNITS TABLET 1000 UNITS PO (21:44)
[2022-04-03] MEDS: GABAPENTIN 300 MG CAPSULE PO (21:45)
[2022-04-03] MEDS: NORTRIPTYLINE HCL 10 MG CAPSULE PO (21:45)
[2022-04-03] MEDS: MELATONIN 5 MG TABLET 10 MG PO (21:49)
[2022-04-03] MEDS: diphenhydrAMINE HCl CAP 25 MG CAPSULE PO (21:50)
[2022-04-04] MEDS: traMADol HCL (*CRX) 50 MG TABLET 100 MG PO ×3 (02:13→12:47)
[2022-04-04 02:15] VITALS: BP 187/81; PULSE 75; RESP 20; TEMP 36.3; O2SAT 99
[2022-04-04] MEDS: ACETAMINOPHEN 500 MG TABLET 1000 MG PO (04:57)
[2022-04-04 06:00] VITALS: BP 173/76; PULSE 78; RESP 20; TEMP 36.7; O2SAT 98
[2022-04-04] MEDS: DOCUSATE SODIUM 100 MG CAPSULE PO (09:00)
[2022-04-04] MEDS: OPTI-GEN TAB 1 TABLET PO (09:00)
[2022-04-04] MEDS: polyethylene glycoL 3350 17 GM POWD.PACK PO (09:00)
[2022-04-04] MEDS: PANTOPRAZOLE 40 MG TABLET PO (09:00)
[2022-04-04] MEDS: FERROUS SULFATE 324 MG TABLET PO (09:00)
[2022-04-04] MEDS: TIZANIDINE HCL 2 MG TABLET PO ×2 (09:00→12:48)
--- NOTE | 2022-04-04 10:01 | PM.IMPN ---
Progress Note: A&P Assessment and Plan (1) Orthostatic hypotension: Code(s): I95.1 - Orthostatic hypotension Status: Resolved Assessment and Plan: c/o postop +dizziness. +orthostatics following surgery. Secondary to anemia. 04/02/22 transfused 1 unit PRBC given symptomatic anemia 04/03/22 Hgb 10.2. Saline lock IVF. Orthostatic vitals negative today. Fall precautions (2) S/P lumbar fusion: Code(s): Z98.1 - Arthrodesis status Status: Acute Assessment and Plan: 03/30/22 POD4 status post L2-3, L3-4 and L4-5 posterior lumbar interbody fusion. Management per neurosurgery. Consider adjusting pain medication to Percocet and/or [place]. I will defer to primary team for this. DVT prophylaxis per surgery. (3) Postoperative anemia due to acute blood loss: Code(s): D62 - Acute posthemorrhagic anemia Status: Acute Assessment and Plan: H/O chronic iron deficiency anemia, Hgb was 13.9 on admission. EBL 900 mL intraop, hemovac -330 mL since surgery 04/02/22 Hgb 7.8, Hct 23.9. transfused 1 unit PRBC for symptomatic anemia Continue iron supplement. 04/03/22 H/H 10.2. Improving symptoms. Hemovac discontinued. 04/04/22 no s/s acute bleeding. symptoms improved. Monitor. Repeat CBC in a.m. the patient is not discharged by primary team today. (4) GERD (gastroesophageal reflux disease): Code(s): K21.9 - Gastro-esophageal reflux disease without esophagitis Status: Chronic Assessment and Plan: Chronic, stable. Continue PPI therapy. (5) Elevated blood pressure reading without diagnosis of hypertension: Code(s): R03.0 - Elevated blood-pressure reading, without diagnosis of hypertension Status: Acute Assessment and Plan: BP 135/43 to 187/81, HR 77. Patient did have postop orthostatic hypotension. Now with elevated blood pressure. No chest pain, vision changes, or headaches. No prior history of hypertension or antihypertensive medication use. Presumed secondary to acute pain. Improve pain control. PRN hydralazine 10 mg IV Q8 hours for SBP>170 or DBP>110 Recommend outpatient ambulatory BP monitoring or home BP monitoring for further evaluation. Follow up with PCP after discharge. Plan Thank you for allowing us to participate in your patient's care. Please do not hesitate to call for any questions or concerns. Time Spent With Patient Time with patient: 15 - 25 minutes Subjective Date/time seen: 04/04/22 10:01 Interval history: Patient is a 66-year-old female with a lumbar foraminal stenosis, lumbar spondylosis, lumbar scoliosis s/p laminectomy, iron deficiency anemia, and GERD. S/p POD4 L2-3, L3-4, L4-5 laminectomy. We were seen in consultation for medical management of acute on chronic anemia and orthostatic hypotension. She is having more pain to her legs and back today. She has been taking tylenol and tramadol without significant improvement today. She reports minimal dizziness with initial position changes. No unsteady gait and she denies feeling faint. Orthostatic vitals negative yesterday. Review of Systems Review of Systems: All systems reviewed & are unremarkable except as noted in HPI and below Exam Narrative: General: No acute respiratory distress. Non-toxic appearing . Sitting up in the chair Neuro: awake, alert and oriented x4, speech clear, no focal neuro deficits noted HEENT: normocephalic, pupils equal and round, sclerae anicteric, mucous membranes moist. Respiratory: clear to auscultation bilaterally, RR regular and unlabored. Cardio: regular rate, regular rhythm with S1-S2. No murmurs, gallops or rubs. Abdomen: nondistended, normoactive bowel sounds, soft, nontender to palpation Back: lower back surgical aquacel dressing clean, dry and intact. Surrounding skin without edema, erythema or ecchymosis. Extremities: no edema, erythema, or tenderness to palpation, DP pulses 2+ bilaterally, BLE with int
[2022-04-04 10:23] VITALS: BP 145/48; PULSE 73; RESP 16; TEMP 36.1; O2SAT 97
[2022-04-04 13:51] VITALS: BP 155/51; PULSE 70; RESP 16; TEMP 36.2; O2SAT 98
[2022-04-04] MEDS: CYCLOBENZAPRINE HCL 5 MG TABLET PO (15:33)
--- NOTE | 2022-04-04 15:43 | PCPTNOTE ---
The patient treatment was not able to be completed this afternoon due to pain. Patient was returning to bed from the bathroom with SBA assist of RN. RN and patient reports patient is having pain and received new medication for muscle relaxer. Will plan to continue treatment per plan of care.
--- NOTE | 2022-05-08 09:00 | PM.DS ---
DS: Admitting Diagnosis Discharge Date 04/04/22 Admitting Diagnosis Lumbar stenosis, spondylosis and listhesis. DS: Summary Hospital Course Reason for hospitalization: Ms. Posadas is a 66-year-old female who presents for posterior lumbar interbody fusion at L2-5. Hospital Course: This [place] was taken the operating room on 03/30/2022 with the aforementioned operation was performed. She had an inadvertent durotomy during the surgery which was sealed with a fat graft and dura Seal. No more leaking was noted intraoperatively or postoperatively. She went to the floor postoperatively. Her drain and [place] catheter were removed on postoperative day 2. She was slow to ambulate and had pain control issues. She complained of nonspecific pain and weakness in her legs which improved throughout her hospitalization. At the time of her discharge on postoperative day 5 she was eating conduit ambulating, emptying her bladder and her pain was under control with by mouth pain medicine. She was making independent transfers. Her wound was clean, dry and intact. She was afebrile with stable vital signs. She was therefore allowed to be discharged home. Time Spent with Patient Time attestation: Total time spent providing and/or coordinating discharge services: Discharge Plan Discharge Attending physician on discharge: Burke Rivas Consulting providers: Kellen Campos ; Gwen Gold ; Scott Gong ; Trell Quintero ; [place] Fernandez ; Yadi Vasquez ; Torrey Go Discharging Clinician: Burke Rivas Anticipated Discharge Date/Time: 04/04/22 17:03 Patient Disposition: Home, Self-Care Activity: may shower Diet: as tolerated Wound Care Instructions: incision open to air Discharge Instructions: INSTRUCTIONS AFTER YOUR LUMBAR LAMINECTOMY/DECOMPRESSION/FORAMINOTOMY/DISCECTOMY Incisions may be closed with either: Steri-strips (let them wear off on their own). Surgical glue (let it peel off on its own). Sutures or mady (call the office for an appointment to have these removed). Keep the incision dry for the first three days after surgery. Never apply ointments or lotions to the incision. The incision should be checked daily. Notify the office if there is drainage, redness, or if you have fever with a temperature of over 100 degrees. After the third postop day, it is okay to shower. Let soap and water run over your incision. No soaking in a tub, hot tub, or pool for at least one month. You are encouraged to walk as much as comfortable, with assistance as needed. For example, it may be beneficial to walk short distances hourly during the waking hours and gradually increase walking during your recovery period. Fatigue can be common. Avoid any bending, heavy lifting, twisting movements. You have an [id number]-[id number]-pound lift restriction until further advised by your physician (A gallon of milk weighs eight pounds). Make frequent position changes, avoiding long periods of sitting. Try not to sit more than 30 minutes at a time. You may engage in sexual activity in two weeks as tolerated. No housework, especially vacuuming, making beds, or doing laundry until seen in the office. You may walk stairs carefully. Minimize car rides for two weeks. Driving can usually be resumed within two weeks; however, you may not drive at that time if still taking pain medications. Once you are discharged from the hospital, please call the office to set up your postop appointment. The physician may order pain medication and/or muscle relaxers. As time goes by, you should require less of these. Always take your medication as ordered, and only if needed. If you take more than prescribed, it will not be refilled early. If you feel you require narcotic medication refill, kindly give the office a 72-hour notice. No refills are given over the weekend. Anti-inflammatory meds (like Ibuprofen, Aleve, Advil, Motrin) may be used if approved
== END 2022-04-04 17:35 | disposition home or self-care (01) | DRG 460 ==
LOC: ANHSURGERY 14:24 → ANH2MED 14:24
PROVIDERS: Internal Medicine; Nurse Practitioner; Nurse Practitioner Family; Physician Assistant; Admitting Provider Neurological Surgery; Visit Provider Neurological Surgery
PROC: 0SG00AJ Fusion of Lumbar Vertebral Joint with Interbody Fusion Device, Posterior Approach, Anterior Column, Open Approach (ICD-10-PCS; CPT 22612; principal; 2022-03-30 07:30)
DX: M48.061 Spinal stenosis, lumbar region without neurogenic claudication (principal); D62 Acute posthemorrhagic anemia; M47.816 Spondylosis without myelopathy or radiculopathy, lumbar region; M41.9 Scoliosis, unspecified; G89.4 Chronic pain syndrome; K21.9 Gastro-esophageal reflux disease without esophagitis; Z90.49 Acquired absence of other specified parts of digestive tract; I95.1 Orthostatic hypotension; E86.0 Dehydration; D50.9 Iron deficiency anemia, unspecified
CPT/HCPCS: 36415; 36430; 70450; 80048; 80053; 83735; 85014; 85018; 85025; 85027; 86850; 86900; 86901; 86920; 93005; 97116; 97162; 97165; 97530; 97535; 99199; A9270; J0690; J1100; J1170; J2250; J2370; J2405; J2704; J3010; J3370; J7030; J7040; J7050; J7120; P9016

== ENCOUNTER 2022-04-12 21:02 | Observation (INO) | payer MEDICARE, SELFPAY ==
--- NOTE | ~2022-04-12 | XR_ITS ---
EXAMINATION: XR chest 1V portable DATE: 04/13/2022 00:29 INDICATION: Leg weakness. TECHNIQUE: A single frontal view of the chest was obtained. COMPARISON: None. FINDINGS: The chest demonstrates clear lungs without pneumonia, pleural effusion, or pneumothorax. Th e heart size is normal. Surgical clips in the right upper quadrant are likely from cholecystectomy. IMPRESSION: 1. No acute cardiopulmonary disease. Reviewed, dictated and finalized at location A.
--- NOTE | ~2022-04-12 | CT_ITS ---
EXAMINATION: CT lumbar spine wo con DATE: 04/12/2022 21:23 INDICATION: SURGERY/ FELL TODAY . TECHNIQUE: Computed tomography (CT) of the lumbar spine was performed without intravenous contrast. A utomated exposure control and iterative reconstruction technique were employed. The dose-length produ ct was 624.53 mGy-cm. COMPARISON: X-ray fluoroscopy 03/30/2022, x-ray L-spine 03/26/2022. FINDINGS: Lumbar scoliosis. 5 nonrib-bearing lumbar-type vertebral bodies. Posterior lumbar fusion fr om L2 to L5 with posterior laminectomy from L2 to L4. Single interbody device at L2-3, paired interbo dy devices at L3-4 and L4-5. All interbody devices remain in stable position. No hardware fracture or perihardware lucency. The left L5 pedicle screw traverses adjacent to the L5 vertebral body, which a ppears to be a chronic finding. Straightening of the lumbar spine. Vertebral body heights preserved. [place] disc spaces maintained. Right midpole subcentimeter hypodensity, too small to characterize. At herosclerotic calcification. Diverticulosis.. IMPRESSION: No acute fracture or traumatic malalignment in the lumbar spine. No CT evidence of hardware-related c omplication. Reviewed, dictated and finalized at location K. IMPRESSION: No acute fracture or traumatic malalignment in the lumbar spine. No CT evidence of hardware-related complication.
--- NOTE | ~2022-04-12 | MR_ITS ---
EXAMINATION: MR lumbar spine wo con DATE: 04/13/2022 12:08 INDICATION: Back pain. Leg weakness. TECHNIQUE: Magnetic resonance imaging (MRI) of the lumbar spine was performed without intravenous con trast. Sequences included sagittal T2-weighted FSE, sagittal T2-weighted FS FSE, sagittal T1-weighted FSE, and axial T2-weighted FSE. COMPARISON: Lumbar spine CT 04/12/2022 FINDINGS: There is 8 degrees levocurvature of lumbar spine. There are changes of anterior and posteri or fusion procedures from L2 to L5 with interbody devices and pedicle screws. There are laminectomies from L2 to L4. There is fluid in the epidural space at L2-L3 and superficial to the musculature from L1 to L5. Intervertebral disc heights are normal. Vertebral body heights are normal. The distal spin al cord signal intensity is normal. The conus medullaris is at L1. The following disc levels are spec ifically discussed: L1-L2: The disc does not extend beyond the endplate margin. There is mild bilateral facet joint osteo arthritis. There is no neural foraminal stenosis. There is no central canal stenosis. L2-L3: There is no facet joint hypertrophy. There is mild bilateral neural foraminal stenosis with po sterior decompression. There is mild central canal stenosis with posterior decompression. L3-L4: There is no facet joint hypertrophy. There is mild bilateral neural foraminal stenosis with po sterior decompression. There is mild central canal stenosis with posterior decompression. L4-L5: There is no facet joint hypertrophy. There is moderate bilateral neural foraminal stenosis wit h posterior decompression. There is mild central canal stenosis with posterior decompression. L5-S1: The disc does not extend beyond the endplate margin. There is severe bilateral facet joint ost eoarthritis. There is mild bilateral neural foraminal stenosis. There is no central canal stenosis. IMPRESSION: 1. Anterior and posterior fusion procedures from L2 to L5. 2. Mild lumbar spondylosis. Reviewed, dictated and finalized at location A.
[2022-04-12 21:26] VITALS: BP 161/81; PULSE 98; RESP 18; TEMP 36.4; O2SAT 98
[2022-04-12 23:32] LABS: Alanine Aminotransferase 46 U/L (6-35); Albumin Level 4.1 g/dL (3.5-5.1); Alkaline Phosphatase 149 U/L (38-126); Anion Gap 10 mmol/L (8-16); Aspartate Amino Transferase 35 U/L (14-36); Bilirubin,Total 0.2 mg/dL (0.2-1.3); Blood Urea Nitrogen 18 mg/dL (7-17); Calcium 8.7 mg/dL (8.4-10.2); Carbon Dioxide 30 mmol/L (22-30); Chloride 96 mmol/L (98-107); Estimated CRCL calculation 53 ml/min; Estimated Glomerular Filt Rate > 60; Glucose 113 mg/dL (65-110); Potassium 3.6 mmol/L (3.4-5.0); Sodium 136 mmol/L (137-145)
[2022-04-12 23:35] LABS: Basophils Absolute Auto 0.1 K/mm3 (0.0-0.1); Basophils Percent Auto 0.6 % (0.2-1.2); Eosinophils Absolute Auto 0.4 K/mm3 (0-0.3); Eosinophils Percent Auto 2.1 % (0-4.4); Hematocrit 37.9 % (37.0-47.0); Immature Granulocyte Absolute 0.71 K/mm3 (0.00-0.031); Immature Granulocyte Percent A 3.5 % (0-0.5); Lymphocytes Absolute Auto 2.64 K/mm3 (0.9-3.2); Mean Corpuscular HGB Conc 31.7 g/dl (32-36); Mean Corpuscular Hemoglobin 28.8 pg (26-34); Mean Corpuscular Volume 91.1 fl (80-100); Mean Platelet Volume 8.9 fl (7.4-10.4); Monocytes Absolute Auto 1.8 K/mm3 (0.1-0.6); Monocytes Percent Auto 8.7 % (2.6-8.5); Neutrophils Absolute Auto 14.7 K/mm3 (1.3-6.7); Neutrophils Percent Auto 72.1 % (45.5-73.1); Red Blood Count 4.16 M/mm3 (4.2-5.4); White Blood Count 20.4 K/mm3 (4.5-10.0)
[2022-04-12 23:38] LABS: Platelet Count Result 525 k/mm3 (150-375)
--- NOTE | 2022-04-12 23:40 | ED.GENADULT ---
HPI - General Adult General Chief complaint: Back Pain/Injury Stated complaint: recent back surgery/ fall today, Time Seen by Provider: 04/12/22 22:41 History of Present Illness HPI narrative: This is a 66-year-old female who underwent back surgery with Dr. Garner on 03/30. she was hospital for approximately 6 days afterward. She was then discharged home. She has been doing well at home until earlier today. When she got out of bed this morning she said that she felt slightly weak in her legs. She denies any trauma or falls. she denies difficulty urinating or UTI symptoms. She has been constipated but she has been taking opiate medications for pain. She had spoken with her surgeon Dr. Garner who wanted her to come to the hospital and to be admitted under his service. Related Data Home Medications Medication Instructions Recorded Confirmed Congaplex 1 tab-cap BID 03/23/22 03/23/22 [place] Tears 1 drp QID 03/23/22 03/23/22 Prevagen 1 tab-cap QAM 03/23/22 03/23/22 acetaminophen 500 mg tablet 1,000 mg PO Q6H PRN Pain 03/23/22 03/23/22 celecoxib 200 mg capsule 200 mg QAM 03/23/22 03/23/22 cholecalciferol (vitamin D3) 25 25 mcg PO HS 03/23/22 03/23/22 mcg (1,000 unit) tablet ferrous sulfate 325 mg (65 mg 325 mg EVERY OTHER DAY 03/23/22 03/23/22 iron) tablet (FeroSul) gabapentin 300 mg capsule 300 mg PO HS 03/23/22 03/23/22 melatonin 10 mg tablet 10 mg PO HS 03/23/22 03/23/22 nortriptyline 10 mg capsule 10 mg HS 03/23/22 03/23/22 omeprazole 20 mg capsule,delayed 20 mg QAM 03/23/22 03/23/22 release psyllium husk 0.52 gram capsule 0.52 g PO HS 03/23/22 03/23/22 vit C 250 mg-vit E 90 mg-zinc 40 1 tablet PO BID 03/23/22 03/23/22 mg-copper 1 [id number] capsule (PreserVision AREDS-2) Allergies Allergy/AdvReac Type Severity Reaction Status Date / Time No Known Allergies Allergy Verified 09/19/22 21:03 Review of Systems Review of Systems: CONSTITUTIONAL: Denies night sweats. EYES: No eye pain ENT: Denies rhinorrhea CARDIOVASCULAR: Denies palpitations RESPIRATORY: Denies hemoptysis GASTROINTESTINAL: Denies hematemesis GENITOURINARY: Denies hematuria. SKIN: Denies rash MUSCULOSKELETAL: Denies myalgia. NEUROLOGIC: Denies weakness. PSYCHIATRIC: Denies delusions PMFSH Past Medical History Medical History Chronic pain syndrome Foraminal stenosis of lumbar region GERD (gastroesophageal reflux disease) History of diverticulitis Iron deficiency anemia Lumbar spondylosis Scoliosis of lumbar spine Surgical History Surgical History Hx of cholecystectomy Hx of tonsillectomy S/P lumbar fusion Family History Family History Mother Dementia Social History Social History Social History: She is retired from [employer] for [employer] - [place]. The patient has 2 children. She is a nonsmoker. She does not use any alcohol marijuana or illicit drugs. Her is the [employer] power marketing services vice president for healthcare. Code status full code Smoking status: Never smoker Second hand tobacco smoke exposure: No Alcohol intake: current Alcohol use details: STATES VERY VERY RARELY Substance use: never Substance use type: does not use Spiritual care concerns: No Exam Narrative: APPEARANCE: No apparent distress. Head atraumatic. EYES: PERRLA/EOMI, NOSE: Normal no drainage NECK: Supple, Trachea midline RESPIRATORY: CTAB, No increased work of breathing. CARDIOVASCULAR: S1S2 appreciated ABDOMINAL: Soft, nontender, nondistended, MUSCULOSKELETAl: No obvious deformities NEURO: Alert. Patient has 5/5 strength at the ankle knee and hip bilaterally. Sensation light touch is intact. Cerebellar function is intact. No saddle anesthesia. SKIN:: Warm, dry. Normal color PSYCHIATRIC: Normal
[2022-04-12 23:47] LABS: Prothrombin Time 12.6 Seconds (11.1-14.7)
[2022-04-12 23:48] LABS: Partial Thromboplastin Time 25.7 SECONDS (22.3-36.8)
[2022-04-12] MEDS: SODIUM CHLORIDE 0.9% IV 1,000 ML 999 ML IV CONT (23:57)
[2022-04-12 23:59] VITALS: BP 166/83; PULSE 89; RESP 18; O2SAT 100
[2022-04-13 00:29] LABS: SARS-CoV-2 RNA PCR Negative
[2022-04-13 00:42] VITALS: BP 166/83; PULSE 80; RESP 18; O2SAT 100
[2022-04-13 01:00] VITALS: BP 186/83; PULSE 89; RESP 14; TEMP 36.5; O2SAT 99
--- NOTE | 2022-04-13 01:02 | ADMGEN ---
This patient, Silvia Posadas, was admitted to Medical Room 255-. Patient/family oriented to hospital policies and general routines including ID bracelet, bed and alarms, visiting hours, pain management, procedures, bathroom and other care routines, personal items, smoking policy, room service/diet, and visiting hours. Information on how to activate the Rapid Response Team has been discussed. Patient/Family are encouraged to report perceived risks to care and to ask questions if they do not understand what they are told or what they should do.
[2022-04-13 01:05] VITALS: BMI 25.1
[2022-04-13 02:00] LABS: Appearance Urine Clear (Clear); Bilirubin Urine Negative (Negative); Blood Urine Negative (Negative); Glucose Urine UA Negative (Negative); Ketones Urine Negative (Negative); Leukocyte Esterase Ur Trace LEU/UL (Negative); Nitrate Urine Negative (Negative); Protein Urine Negative (Negative); Specific Grav Ur 1.015 (1.001-1.035); Urobilinogen Urine 0.2 mg/dL (<2.0)
[2022-04-13 02:06] LABS: Add Urine Microscopic? YES; Color Urine Light Yellow (Yellow); RBC Urine 0-2 /hpf (0-2); Squamous Epithelial Cell Urine Rare /hpf (Few)
[2022-04-13 05:35] VITALS: BP 165/81; PULSE 85; RESP 16; TEMP 36.6; O2SAT 97
--- NOTE | 2022-04-13 10:39 | PM.IMHP ---
H&P: HPI History of Present Illness Date/Time: 04/13/22 10:39 Chief Complaint: Back and leg pain, leg weakness Narrative: Ms. Posadas is a 66-year-old female who is well known to me for problems related to her back and who 2 weeks ago underwent L2-5 posterior lumbar interbody fusion without complication. She had some pain control issues and mobilization she is in the hospital but was discharged ambulatory and in good neurologic condition. She had bouts of orthostatic hypotension. She has had a couple of falls at home that were have resulted in increased pain. She also had constipation which seem to be causing her trouble. She did not feel like she could walk yesterday and therefore I instructed her to come to the emergency room where she was evaluated by way of CT scan. Today she feels better having had a bowel movement. She reports generalized weakness but not specific muscle group weakness. She does not report any specific dermatomal numbness of either lower extremity. Besides constipation, she has not had any other bowel or bladder issues and no incontinence. Review of Systems Review of Systems: Patient denies shortness of breath, cough, fever, chills, nausea, vomiting, weight loss, weight gain, chest pain, dysuria. She acknowledges falls and back and leg pain as well as generalized lower extremity weakness PMFSH Past Medical History Medical History Chronic pain syndrome Foraminal stenosis of lumbar region GERD (gastroesophageal reflux disease) History of diverticulitis Iron deficiency anemia Lumbar spondylosis Scoliosis of lumbar spine Surgical History Surgical History Hx of cholecystectomy Hx of tonsillectomy S/P lumbar fusion Family History Family History Mother Dementia Social History Social History Social History: She is retired from [employer] for [employer]. The patient has 2 children. She is a nonsmoker. She does not use any alcohol marijuana or illicit drugs. Her is the durable power district attorney for healthcare. Code status full code Smoking status: Never smoker Second hand tobacco smoke exposure: No Alcohol intake: never Alcohol use details: STATES VERY VERY RARELY Substance use: never Substance use type: does not use Spiritual care concerns: No Meds Home Medications and Allergies Home Medications Medication Instructions Recorded Confirmed Type Congaplex 1 tab-cap BID 03/23/22 04/13/22 History [place] Tears 1 drp EACH EYE QID 03/23/22 04/13/22 History Prevagen 1 tab-cap QAM 03/23/22 04/13/22 History acetaminophen 500 mg tablet 1,000 mg PO Q6H PRN Pain (Scale 03/23/22 04/13/22 History Score 1-3) celecoxib 200 mg capsule 200 mg QAM 03/23/22 04/13/22 History cholecalciferol (vitamin D3) 25 25 mcg PO HS 03/23/22 04/13/22 History mcg (1,000 unit) tablet ferrous sulfate 325 mg (65 mg 325 mg EVERY OTHER DAY 03/23/22 04/13/22 History iron) tablet (FeroSul) gabapentin 300 mg capsule 300 mg PO HS 03/23/22 04/13/22 History melatonin 10 mg tablet 10 mg PO HS 03/23/22 04/13/22 History nortriptyline 10 mg capsule 10 mg HS 03/23/22 04/13/22 History omeprazole 20 mg capsule,delayed 20 mg QAM 03/23/22 04/13/22 History release psyllium husk 0.52 gram capsule 0.52 g PO HS 03/23/22 04/13/22 History vit C 250 mg-vit E 90 mg-zinc 40 1 tablet PO BID 03/23/22 04/13/22 History mg-copper 1 [id number] capsule (PreserVision AREDS-2) cyclobenzaprine 10 mg tablet 10 mg PO TID PRN muscle spasm #30 04/04/22 04/13/22 Rx tabs methylprednisolone 4 mg tablets in See Rx Instructions PO PER PKG DIR 04/08/22 04/13/22 Rx a dose pack (Medrol (Rodríguez)) #21 ea hydrocodone 5 mg-acetaminophen 325 1 - 2 tablet PO Q4H PRN Pain 04/13/22 04/13/22 History mg
[2022-04-13] MEDS: HYDROcodone/acetaminophen (*CRX) 10-325 MG TABLET 1 TAB PO (11:41)
[2022-04-13] MEDS: ARTIFICIAL TEARS OPHTH SOLN 15 ML BOTTLE 1 DROP EACH EYE (12:47)
[2022-04-13] MEDS: methylPREDNISolone 4 MG TABLET PO (12:48)
[2022-04-13] MEDS: PANTOPRAZOLE 40 MG TABLET BY MOUTH (12:48)
[2022-04-13 14:00] VITALS: BP 159/68; PULSE 87; RESP 16; TEMP 36.9; O2SAT 98
--- NOTE | 2022-05-08 08:57 | P.DS_ITS ---
DS: Admitting Diagnosis Discharge Date 04/13/22 Admitting Diagnosis Leg pain and weakness DS: Summary Hospital Course Reason for hospitalization: Ms. Posadas is a 66-year-old female who underwent an L2-5 posterior lumbar interbody fusion about a week before this admission but had persistent pain issues and ambulatory issues and therefore was admitted to the hospital for evaluation. Hospital Course: This [place] was admitted to the hospital and an MRI and CT scan of the lumbar spine were performed. These failed to demonstrate any significant abnormalities. The instrumentation was noted to be in good position and there were no epidural masses to account for any issues. Home health was consulted and arranged. Pain control was achieved. At the time of her discharge she was eating, ambulating, emptying her bladder and her pain was under control with by mouth pain medicine. Her wounds were clean dry and intact. She was afebrile with stable vital signs. She was therefore allowed to be discharged home. Time Spent with Patient Time attestation: Total time spent providing and/or coordinating discharge services: Discharge Plan Discharge Attending physician on discharge: Burke Rivas Consulting providers: Steve Pérez ; Aleksandr England ; Bean Denis V. Discharging Clinician: Burke Rivas Anticipated Discharge Date/Time: 04/13/22 12:40 Patient Disposition: Home Health Service Activity: may shower and may drive after 2 weeks Diet: as tolerated Discharge Instructions: Per Care Coordination Patient has been arranged to have [facility] for RN, PT, OT [phone] RN please fax completed discharge instructions to [phone] Patient Instructions: Antibiotic Form Stand Alone Forms: General Discharge Information Follow-up/Referrals: Burke Rivas MD [Physician] - Discharge Medications: Continued acetaminophen 500 mg Tablet 1,000 mg PO Q6H PRN (Reason: Pain (Scale Score 1-3)) nortriptyline 10 mg capsule 10 mg HS ferrous sulfate [FeroSul] 325 mg (65 mg iron) tablet 325 mg EVERY OTHER DAY Label Comments: TAKES ON EVEN DAYS QAM gabapentin 300 mg Capsule 300 mg PO HS omeprazole 20 mg capsule,delayed release(DR/EC) 20 mg QAM cholecalciferol (vitamin D3) 25 mcg (1,000 unit) Tablet 25 mcg PO HS melatonin 10 mg Tablet 10 mg PO HS PreserVision AREDS-2 250-90-40-1 mg Capsule 1 tablet PO BID Congaplex 1 tab-cap BID Label Comments: BID TUESDAY-TUESDAY Prevagen 1 tab-cap QAM psyllium husk 0.52 gram Capsule 0.52 g PO HS [place] Tears 1 drp EACH EYE QID Label Comments: EACH EYE cyclobenzaprine 10 mg tablet 10 mg PO TID PRN (Reason: muscle spasm) Qty: 30 0RF methylprednisolone [Medrol (Rodríguez)] 4 mg tablets,dose pack See Rx Instructions PO PER PKG DIR Qty: 21 0RF Rx Instructions: ONLY NEEDS THE LAST PILL OF 4MG ON 04/13/22 AM DOSE--THEN COMPLETE Held celecoxib 200 mg capsule 200 mg QAM Hold Instructions: Resume on 05/16/22. No Action hydrocodone-acetaminophen 5-325 mg tablet 1 - 2 tablet PO Q4H PRN (Reason: Pain (Scale Score 4-6)) Qty: 40 0RF Date of admission: 04/12/22 23:08 Primary Care Provider: PHYSICIAN NOT ON STAFF,NONSTAFF Admitting Provider: Burke Rivas Attending physician on admission: Burke Rivas Condition: Improved
== END 2022-04-13 14:28 | disposition home health service (06) ==
LOC: ANHED 22:55 → ANH2MED 23:47
PROVIDERS: Emergency Medicine; Admitting Provider Neurological Surgery; Emergency Provider Emergency Medicine; Visit Provider Neurological Surgery
DX: R53.1 Weakness (principal); M79.669 Pain in unspecified lower leg; Z98.1 Arthrodesis status; M48.061 Spinal stenosis, lumbar region without neurogenic claudication; M48.062 Spinal stenosis, lumbar region with neurogenic claudication; M47.816 Spondylosis without myelopathy or radiculopathy, lumbar region; G89.4 Chronic pain syndrome; K21.9 Gastro-esophageal reflux disease without esophagitis; D50.0 Iron deficiency anemia secondary to blood loss (chronic); Z72.89 Other problems related to lifestyle; Z20.822 Contact with and (suspected) exposure to COVID-19; D72.829 Elevated white blood cell count, unspecified; K59.00 Constipation, unspecified; Z79.52 Long term (current) use of systemic steroids; Z79.1 Long term (current) use of non-steroidal anti-inflammatories (NSAID); Z79.899 Other long term (current) drug therapy
CPT/HCPCS: 36415; 71045; 72131; 72148; 80053; 81001; 85025; 85610; 85730; 96360; 96361; 99285; A9270; C9803; G0378; J7030; U0003; U0005

== ENCOUNTER 2022-05-10 10:39 | Outpatient (CLI) | payer MEDICARE, SELFPAY ==
--- NOTE | ~2022-05-10 | XR_ITS ---
EXAMINATION: XR lumbar spine 2-3V DATE: 05/10/2022 11:06 INDICATION: Status post lumbar fusion TECHNIQUE: Two views of the lumbar spine are obtained. COMPARISON: 03/26/2022 FINDINGS: There are changes of anterior and posterior fusion and laminectomy from L2 through L5. Bone alignment is normal. There is slight improvement of the previously described lumbar levoscoliosis. S urgical clips in the right upper quadrant are likely from prior cholecystectomy. IMPRESSION: 1. Changes of interval anterior and posterior fusion and laminectomy from L2 through L5. Reviewed, dictated and finalized at location A. IMPRESSION: 1. Changes of interval anterior and posterior fusion and laminectomy from L2 th rough L5.
== END 2022-05-10 10:40 | disposition home or self-care (01) ==
PROVIDERS: Visit Provider Neurological Surgery
DX: Z98.890 Other specified postprocedural states (principal); Z98.1 Arthrodesis status
CPT/HCPCS: 72100